=== PATIENT | female | born 1975 | race Two or more races ===

== ENCOUNTER 2020-05-01 06:00 | Day surgery (SDC) | payer OTHER ==
[~2020-05-01 06:00] MED LIST: ALLEGRA ALLERG180 MG PO; CELEXA PO; CLONAZEPAM0.5 MG PO; DETROL LA4 MG PO; PRILOSEC OTC20 MG PO; RESTOR PO; SINGULAIR10 MG PO
[2020-05-01] MEDS ORDERED: ULTRACET PO (09:18)
[2020-05-01] MEDS ORDERED: MACROBID 100 M100 MG PO (09:18)
== END 2020-05-01 11:30 | disposition home or self-care (01) ==
LOC: CIR.AMB 06:00
PROVIDERS: ATTEND Obstetrics & Gynecology Gynecology
DX: N39.3 Stress incontinence (female) (male) (principal); Z20.828 Contact with and (suspected) exposure to other viral communicable diseases
CPT/HCPCS: 57288; C1771